=== PATIENT | male | born 1965 | race Hispanic/Latino ===

== ENCOUNTER 2016-09-13 17:57 | Emergency (ER) | payer OTHER ==
[~2016-09-13] VITALS: Ht 165.1 cm; Wt 74.9 kg
[~2016-09-13 17:57] MED LIST: CITRATE OF MAG296 ML PO; NAPROSYN500 MG PO; ULTRACET1 TABLET PO; ZANTAC150 MG PO
[2016-09-13 19:22] VITALS: BP 126/85
== END 2016-09-13 19:23 | disposition home or self-care (01) ==
LOC: EME 17:57
DX: H11.32 Conjunctival hemorrhage, left eye (principal); Z87.891 Personal history of nicotine dependence
CPT/HCPCS: 99281; 99283

== ENCOUNTER 2016-12-18 09:46 | Emergency (ER) | payer OTHER ==
[~2016-12-18] VITALS: Ht 165.1 cm; Wt 74.2 kg
[2016-12-18] MEDS ORDERED: MOTRIN600 MG PO (12:47)
[2016-12-18 13:34] VITALS: BP 135/85
== END 2016-12-18 13:37 | disposition home or self-care (01) ==
LOC: EME 09:46
DX: R51 Headache (principal); H92.01 Otalgia, right ear; R42 Dizziness and giddiness; R11.0 Nausea; G89.29 Other chronic pain; M25.511 Pain in right shoulder; Z87.891 Personal history of nicotine dependence
CPT/HCPCS: 99281; 99285; J1200; J2765; J7030